=== PATIENT | male | born 1955 | race Caucasian/White ===

== ENCOUNTER → 2023-11-01 | Emergency (ER) | payer MEDICARE ==
[~2023-11-01] VITALS: Ht 182.9 cm; Wt 168.9 kg
[~2023-11-01] MED LIST: CEPH-585 PO; NYST30CR35 TOP
[2023-11-01 07:50] VITALS: BP 187/79; PULSE 71; TEMP 98.7; O2SAT 97
[2023-11-01 10:05] VITALS: RESP 18
== END | disposition home or self-care (01) ==
LOC: ER 07:40
DX: B37.2 Candidiasis of skin and nail (principal); L03.314 Cellulitis of groin
CPT/HCPCS: 99283